=== PATIENT | female | born 1990 | race Caucasian/White ===

== ENCOUNTER → 2020-06-24 | Outpatient (CLI) | payer MEDICAID ==
--- NOTE | 2020-06-29 19:34 | HM ---
HOLTER MONITOR REPORT [id number] HOLTER MONITOR: Sinus mechanism and sinus tachycardia. Heart rates ranged from 70 to 164 beats per minute. Episodes of second-degree AV block with blocked P-waves without prior VA prolongation. These episodes are not associated with any significant pauses, but they occur immediately after episodes of sinus tachycardia. Occasional PVCs. DAPHNIE / DIONISION: [id number] /
== END | disposition home or self-care (01) ==
LOC: RADECHMAIN 12:19
PROVIDERS: ATTEND Internal Medicine
DX: R00.0 Tachycardia, unspecified (principal); I44.1 Atrioventricular block, second degree
CPT/HCPCS: 93225; 93226

== ENCOUNTER → 2020-10-22 | Outpatient (CLI) | payer MEDICAID ==
--- NOTE | 2020-10-23 06:38 | MR ---
EXAMINATION TYPE: MR brain wo/w con DATE OF EXAM: 10/22/2020 COMPARISON: NONE HISTORY: Syncope and collapse per order and patient. TECHNIQUE: Multiplanar, multisequence images of the brain and brainstem is performed without and with IV contras t, utilizing 10 mL intravenous Gadavist . FINDINGS: Diffusion weighted images demonstrate no evidence of a recent infarct or other diffusion ab normality. There is no extra-axial fluid collection or significant white matter signal abnormality. The ventricular system and cisternal spaces are normal in size and appearance. The brain volume is age appropriate. Midline structures demonstrate normal morphology. The craniocervical junction appears within normal limits. Post contrast images demonstrate no enhancing masses. There is prominent enhancing vessel. T he midline in the inferior left frontal region axial image 16 above the course of the anterior cerebr al arteries, suspect incidental venous angioma. The dural venous sinuses appear patent. The visualize d sinuses are clear and the globes are intact. No suspicious fluid signal in the bilateral mastoid ai r cells. Nasal septum is deviated to right of midline. IMPRESSION: Source of syncope not identified.
== END | disposition home or self-care (01) ==
LOC: RADMRIMAIN 15:40
PROVIDERS: ATTEND Psychiatry & Neurology Neurology
DX: R55 Syncope and collapse (principal)
CPT/HCPCS: 70553; A9585